=== PATIENT | female | born 1945 | race Caucasian/White ===

== ENCOUNTER 2019-10-25 17:48 | Emergency (ER) | payer MEDICARE, SELFPAY ==
[~2019-10-25] VITALS: Ht 162.6 cm; Wt 113.4 kg
[2019-10-25 18:00] VITALS: BP_SYST 127
--- NOTE | 2019-10-25 18:00 | NUR ---
Patient to ER bed 7 to gown for evaluation. Side rails up.
--- NOTE | 2019-10-25 18:00 | NUR ---
ER Dr. BARNETT at bedside examining patient.
--- NOTE | 2019-10-25 18:05 | NUR ---
Patient presented to ER C/O ANXIETY. Patient A&Ox4, afebrile, BIB BLS, skin pink and warm, pain 7/10, denies N/V/D. Patient states she has anxiety related to nursing residential facility providing care; requesting special mattress. PT states she has bone pain in middle chest.
--- NOTE | 2019-10-25 18:09 | NUR ---
ER Dr. BARNETT at bedside examining patient.
[2019-10-25] MEDS ORDERED: LORazepam 1 MG TABLET PO ONE (18:15)
--- NOTE | 2019-10-25 18:50 | NUR ---
phlebotomy staff at bedside.
--- NOTE | 2019-10-25 19:16 | NUR ---
REPORT TO TIMOTHY VEGAS
--- NOTE | 2019-10-25 19:17 | NUR ---
Report recieved from [facility] for continuation of care.
[2019-10-25 19:19] LABS: BASOPHILS # (AUTO) 0.1 K/uL (0.0-0.2); BASOPHILS % (AUTO) 1.3 % (0.0-2.0); EOSINOPHILS # (AUTO) 0.2 K/uL (0.0-0.4); EOSINOPHILS % (AUTO) 2.3 % (0.0-4.0); HEMOGLOBIN 8.5 g/dL (12.0-16.0); LYMPHOCYTES # (AUTO) 1.7 K/uL (1.0-5.5); LYMPHOCYTES % (AUTO) 16.6 % (20.5-51.5); MEAN CORPUSCULAR HEMOGLOBIN 27 pg (27-31); MEAN CORPUSCULAR HGB CONC 31 % (32-36); MEAN CORPUSCULAR VOLUME 88 fL (79.0-98.0); MONOCYTES # (AUTO) 0.8 K/uL (0.0-1.0); MONOCYTES % (AUTO) 7.2 % (1.7-9.3); NEUTROPHILS # (AUTO) 7.6 K/uL (1.8-7.7); NEUTROPHILS % (AUTO) 72.6 % (40.0-70.0); PLATELET COUNT (AUTO) 459 K/uL (130-430); RED BLOOD CELL COUNT(AUTO) 3.09 MIL/uL (4.2-6.2); RED CELL DISTRIBUTION WIDTH 17.7 % (9.0-15.0); WHITE BLOOD COUNT (AUTO) 10.5 K/uL (4.8-10.8)
[2019-10-25 19:22] LABS: ANION GAP 7 (5-15); CALCIUM 9.7 mg/dL (8.4-11.0); CHLORIDE 105 mmol/L (98-107); CREATININE 1.67 mg/dL (0.55-1.30); GLUCOSE 104 mg/dL (70-99); POTASSIUM 4.8 mmol/L (3.5-5.1); SODIUM SERUM 137 mmol/L (136-145); UREA NITROGEN, BLOOD 34 mg/dL (8-21)
[2019-10-25 19:28] LABS: ALANINE AMINOTRANSFERASE 15 U/L (12-78); ALBUMIN 2.2 g/dL (3.4-4.8); ASPARTATE AMINOTRANSFERASE 11 U/L (10-37); TOTAL BILIRUBIN 0.2 mg/dL (0.0-1.0)
--- NOTE | 2019-10-25 20:00 | NUR ---
Pt pending discharge, [facility] speaking to [facility] case management discussing patient's living facility.
--- NOTE | 2019-10-25 20:20 | NUR ---
Facility admin called to discuss transport for patient back to [facility], Janae was told patient has been cleared to return to facility. Janae stated they will not take patient back because she stated pt said she does not want to go back to the facility.
--- NOTE | 2019-10-25 20:40 | NUR ---
Janae and Residential Support Specialist Wilfred discussed patient going back to facility. Janae will like patient to state she is willing to go back to facility. Pt spoke to Janae stating she is willing to go back to facility with the condition she will receive her bariatric bed. As per Janae the bed will be there in the morning and patient is aware and agreed.
[2019-10-25] MEDS ORDERED: HYDROcodone/ACETAMIN 10-325 MG TAB PO ONE (20:45)
--- NOTE | 2019-10-25 21:00 | NUR ---
[facility] called to set up transfer for patient.
--- NOTE | 2019-10-25 22:14 | NUR ---
Pt requesting food, turkey sandwich given to patient.
--- NOTE | 2019-10-25 22:38 | NUR ---
Patient to be transferred to [facility]. Is being transferred due to higher level of care. Receiving facility has accepting physician and available space. ER physician has signed transfer form. Patient or responsible alliance party has agreed to transfer and signed form. Patient belongings inventoried and will be sent with patient. Copy of nursing notes, lab reports, EKG, Physicians Orders and X-rays to be sent with patient. Report called to Leonel at receiving facility. Receiving physician is . ambulance service has been called for transfer. ETA is [id number].
[2019-10-26 00:11] VITALS: BP_SYST 126
== END 2019-10-26 00:11 | disposition home or self-care (01) ==
LOC: SED 17:48
DX: F41.9 Anxiety disorder, unspecified (principal); I10 Essential (primary) hypertension; E11.9 Type 2 diabetes mellitus without complications; E07.9 Disorder of thyroid, unspecified; E78.5 Hyperlipidemia, unspecified; Z88.6 Allergy status to analgesic agent; Z88.0 Allergy status to penicillin; Z20.828 Contact with and (suspected) exposure to other viral communicable diseases
CPT/HCPCS: 36415; 71045; 80053; 82550; 83880; 84484; 85025; 93005; 99285; U0003